=== PATIENT | female | born 1965 | race Two or more races ===

== ENCOUNTER → 2020-11-21 08:00 | Outpatient (CLI) | payer OTHER ==
[~2020-11-21] VITALS: Ht 157.5 cm; Wt 66.2 kg
[~2020-11-21 08:00] MED LIST: IBERSARTAN PO; SYNTHROID75 MCG PO; TOPROL XL50 M1 PO
== END | disposition home or self-care (01) ==
LOC: LAB 08:00 → SURH 11-28 10:00 → EDSTATUS 11-28 10:00 → SURH 11-28 23:00
PROVIDERS: ATTEND Colon & Rectal Surgery
DX: Z03.818 Encounter for observation for suspected exposure to other biological agents ruled out (principal); Z20.828 Contact with and (suspected) exposure to other viral communicable diseases; K57.32 Diverticulitis of large intestine without perforation or abscess without bleeding; K92.1 Melena